=== PATIENT | female | born 1990 | race Caucasian/White ===

== ENCOUNTER 2020-12-28 11:37 | Emergency (ER) | payer OTHER ==
[~2020-12-28] VITALS: Ht 180.3 cm; Wt 99.8 kg
[2020-12-28 13:10] LABS: Basophils # (auto) 0 10 ^3/uL (0-0.2); Basophils % (auto) 0.5 % (0.0-2.0); Eosinophils # (auto) 0.1 10 ^3/uL (0-0.8); Eosinophils % (auto) 0.7 % (0.0-7.0); Hematocrit 38.3 % (36.0-46.0); Hemoglobin 12.7 g/dL (12.2-16.2); Lymphocytes # (auto) 2.1 10 ^3/uL (0.4-5.4); Lymphocytes % (auto) 20.5 % (10.0-50.0); Mean Corpuscular Hemoglobin 27.5 pg (28.0-32.0); Mean Corpuscular Hgb Conc. 33.1 g/dL (32.0-36.0); Mean Corpuscular Volume 83.1 fL (80.0-100.0); Monocytes # (auto) 0.6 10 ^3/uL (0-1.3); Monocytes % (auto) 6.3 % (0.0-12.0); Neutrophils # (auto) 7.4 10 ^3/uL (1.6-8.6); Nucleated Red Blood Cells % 0.1 %; Red Blood Cells 4.61 10^6/uL (4.0-5.20); Red Cell Distribution Width 15.3 % (11.8-14.3); White Blood Cell 10.3 10^3/uL (4.4-10.8)
[2020-12-28 13:30] LABS: Salicylate < 1.7 mg/dL (2.8-20.0)
[2020-12-28 13:31] LABS: Albumin 3.8 g/dL (3.4-5.0); Calcium 8.6 mg/dL (8.5-10.1); Magnesium 2.2 mg/dL (1.6-2.6)
[2020-12-28 13:40] LABS: BUN/Creatinine Ratio 27.7; Bilirubin, Total 0.2 mg/dL (0.2-1.0); Total Protein 7.8 g/dL (6.4-8.2)
[2020-12-28] MEDS ORDERED: NICOTINE 14 MG/24HR TOPICAL PATCH TD SCH (14:20)
[2020-12-28] MEDS ORDERED: ONDANSETRON HCL 4 MG/2 ML VIAL ONE (14:26)
[2020-12-28] MEDS ORDERED: NICOTINE 14 MG/24HR TOPICAL PATCH TD ONE (14:26)
[2020-12-28 15:12] LABS: Amphetamine Screen, Urine NEGATIVE (NEGATIVE); Barbiturate Scree,Urine NEGATIVE (NEGATIVE); Benzodiazephine Screen, Urine POSITIVE (NEGATIVE); Cannabinoid Screen, Urine POSITIVE (NEGATIVE); Cocaine Screen, Urine NEGATIVE (NEGATIVE); Opiate Scree,Urine NEGATIVE (NEGATIVE); Phencyclidine Screen, Urine POSITIVE (NEGATIVE)
[2020-12-28 17:02] LABS: Acetaminophen < 2.0 ug/mL (10-30)
[2020-12-28 20:44] VITALS: BP 142/85
[2020-12-28] MEDS ORDERED: PRAMIPEXOLE DIHYDROCHLORIDE MO 0.25 MG TAB PO SCH (22:00)
== END 2020-12-28 20:54 | disposition home or self-care (01) ==
LOC: ER 11:37 → EDBD 11:37 → ER 20:54
DX: T40.422A Poisoning by tramadol, intentional self-harm, initial encounter (principal); R45.851 Suicidal ideations; F41.9 Anxiety disorder, unspecified; F32.9 Major depressive disorder, single episode, unspecified; F17.210 Nicotine dependence, cigarettes, uncomplicated; R94.31 Abnormal electrocardiogram [ECG] [EKG]; F12.10 Cannabis abuse, uncomplicated; Z32.02 Encounter for pregnancy test, result negative; Y92.9 Unspecified place or not applicable
CPT/HCPCS: 36415; 80053; 80307; 80329; 81025; 83735; 85025; 93005; 99285; J2405

== ENCOUNTER 2021-03-24 18:50 | Emergency (ER) | payer OTHER ==
[~2021-03-24] VITALS: Ht 180.3 cm; Wt 102.1 kg
[2021-03-25 07:01] VITALS: BP 118/77
== END 2021-03-25 07:26 | disposition home or self-care (01) ==
LOC: ER 18:51
DX: S61.303A Unspecified open wound of left middle finger with damage to nail, initial encounter (principal); F12.10 Cannabis abuse, uncomplicated; F17.210 Nicotine dependence, cigarettes, uncomplicated; Z88.8 Allergy status to other drugs, medicaments and biological substances; W01.0XXA Fall on same level from slipping, tripping and stumbling without subsequent striking against object, initial encounter; Y93.89 Activity, other specified; Y92.89 Other specified places as the place of occurrence of the external cause; Y99.8 Other external cause status
CPT/HCPCS: 11730